=== PATIENT | female | born 2005 | race Caucasian/White ===

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

== ENCOUNTER 2023-02-13 10:19 | Observation (INO) | payer MEDICAID ==
[2023-02-13] MEDS ORDERED: Sodium Chloride 0.9% 10 ML Syringe FLUSH PRN (10:55)
[2023-02-13] MEDS ORDERED: Sodium Chloride 0.9% 2.5 ML Syringe FLUSH PRN (10:55)
[2023-02-13] MEDS ORDERED: Sodium Chloride 0.9% 1,000 ML IV ONE (10:55)
[2023-02-13] MEDS ORDERED: Ondansetron 4 MG/2 ML SDV IVPUSH ONE ×2 (10:55→13:27)
[2023-02-13] MEDS ORDERED: fentaNYL 50 MCG/ML SDV IVPUSH ONE ×2 (10:55→13:27)
[2023-02-13 11:37] LABS: CARBON DIOXIDE,CO2 19.3 mmol/L (21.0-32.0); POTASSIUM,K 3.5 mmol/L (3.5-5.1)
[2023-02-13] MEDS ORDERED: Iopamidol 755 MG/ML 500 ML Multipack Bottle IVPUSH ONE (13:18)
[2023-02-13] MEDS ORDERED: Ertapenem 1 GM in Sodium Chloride 0.9% 50 ML IV ONE (13:50)
[2023-02-13] MEDS ORDERED: Bupivacaine 0.25% 30 ML SDV ONE (15:16)
[2023-02-13] MEDS ORDERED: Bupivacaine 0.5% 10 ML SDV ONE (15:17)
[2023-02-13] MEDS ORDERED: droPERidol 5 MG/2 ML SDV IVPUSH PRN (15:21)
[2023-02-13] MEDS ORDERED: Morphine 2 MG/ML SYRINGE IVPUSH PRN (15:21)
[2023-02-13] MEDS ORDERED: Albuterol 0.083% 2.5 MG/3 ML Neb Soln NEB PRN (15:21)
[2023-02-13] MEDS ORDERED: Ondansetron 4 MG/2 ML SDV IVPUSH PRN ×2 (15:21→17:09)
[2023-02-13] MEDS ORDERED: Metoclopramide 10 MG/2 ML SDV IVPUSH PRN (15:21)
[2023-02-13] MEDS ORDERED: ePHEDrine 50 MG/ML SDV IVPUSH PRN (15:21)
[2023-02-13] MEDS ORDERED: Naloxone 0.4 MG/ML SDV IVPUSH PRN (15:21)
[2023-02-13] MEDS ORDERED: HYDROmorphone 1 MG/ML Syringe IVPUSH PRN ×2 (15:21→17:09)
[2023-02-13] MEDS ORDERED: fentaNYL 50 MCG/ML SDV IVPUSH PRN (15:21)
[2023-02-13] MEDS ORDERED: Lidocaine 2% 5 ML SDV ONE (15:26)
[2023-02-13] MEDS ORDERED: Sugammadex Sodium 200 MG/2 ML VIAL ONE (15:26)
[2023-02-13] MEDS ORDERED: Dexamethasone 4 MG/ML 5 ML MDV ONE (15:26)
[2023-02-13] MEDS ORDERED: Ondansetron 4 MG/2 ML SDV ONE (15:26)
[2023-02-13] MEDS ORDERED: Ketorolac 30 MG/ML SDV ONE (15:26)
[2023-02-13] MEDS ORDERED: Rocuronium Bromide 50 MG/5 ML Syringe ONE (15:26)
[2023-02-13] MEDS ORDERED: fentaNYL 100 MCG/2 ML SDV ONE ×2 (15:27→16:33)
[2023-02-13] MEDS ORDERED: Propofol 200 MG/20 ML SDV ONE (15:27)
[2023-02-13] MEDS ORDERED: Ropivacaine 0.5% 5 MG/ML 30 ML SDV ONE (15:32)
[2023-02-13] MEDS ORDERED: Bupivacaine 25%/EPINEPHrine/PF 30 ML ONE (15:32)
[2023-02-13] MEDS: Piperacillin/Tazobactam 3.375 GM in Sodium Chloride 0.9% 100 ML IV SCH (18:35)
[2023-02-13] MEDS: Acetaminophen/HYDROcodone 325-5 MG Tab PO PRN ×2 (19:56→23:59)
[2023-02-14] MEDS: Piperacillin/Tazobactam 3.375 GM in Sodium Chloride 0.9% 100 ML IV SCH ×2 (01:27→10:07)
[2023-02-14] MEDS: Acetaminophen/HYDROcodone 325-5 MG Tab PO PRN (07:26)
[2023-02-14 13:59] VITALS: BP 107/56; PULSE 75
== END 2023-02-14 11:15 | disposition home or self-care (01) ==
LOC: MW.ED 10:19 → MW.MS 13:55
PROVIDERS: ADMIT Surgery; ATTEND Surgery
DX: K35.30 Acute appendicitis with localized peritonitis, without perforation or gangrene (principal); E86.0 Dehydration; R42 Dizziness and giddiness; R16.1 Splenomegaly, not elsewhere classified; K82.8 Other specified diseases of gallbladder; J98.4 Other disorders of lung; Z90.89 Acquired absence of other organs; F12.90 Cannabis use, unspecified, uncomplicated; Z79.899 Other long term (current) drug therapy
CPT/HCPCS: 36415; 44970; 74177; 80053; 81003; 81025; 83690; 84703; 85025; 96361; 96365; 96375; 96376; 99285; A9270; J0131; J1100; J1335; J1885; J2405; J2543; J2704; J2795; J3010; J3490; J7030; Q9967; 00840; 64488; 99284